=== PATIENT | female | born 1965 | race Native Hawaiian/Other Pacific Islander ===

== ENCOUNTER 2018-05-11 20:16 | Observation (INO) | payer OTHER ==
[~2018-05-11] VITALS: Ht 175.3 cm; Wt 61.9 kg
[2018-05-11 20:47] VITALS: BP 122/83; TEMP 98.7
[2018-05-11 22:13] VITALS: BP 132/80; TEMP 98
[2018-05-11 23:10] LABS: PARTIAL THROMBOPLASTIN TIME 27.6 SECONDS (24.5-33.6)
[2018-05-11 23:11] VITALS: BP 119/75; TEMP 98.1; Ht 175.3 cm; Wt 61.9 kg
[2018-05-12] VITALS: BP 119/75; TEMP 98.1
--- NOTE | 2018-05-12 00:21 | NUR ---
RECD FROM ER VIA WC, C/O PAIN BEHIND RIGHT KNEE, WITH NO REDNESS OR EDEMA NOTED. PEDAL PULSE+, POPITEAL PULSE+, BILATERAL LEGS AT KNEE MEASURE 15 INCHES AROUND. NOTED TO HAVE 22G SALINE LOCK TO RAC
[2018-05-12 04:00] VITALS: BP 117/63; TEMP 97.9
[2018-05-12 08:00] VITALS: BP 111/69; TEMP 98
[2018-05-12 09:42] LABS: PLATELET COUNT 212 K/uL (152-353)
[2018-05-12 10:01] LABS: POTASSIUM 3.8 mmol/L (3.6-5.2)
[2018-05-12 12:00] VITALS: BP 111/57; TEMP 97.9
--- NOTE | 2018-05-12 14:58 | NUR ---
PT DISCHARGED WITH EDUCATION GIVEN. PT VERBALIZED UNDERSTANDING. IV DC WITH CANNULA TIP INTACT. PT TOLERATED WELL. NAD NOTED. PT AMBULATED OUT PER REQUEST OF PT.
== END 2018-05-12 15:00 | disposition home or self-care (01) ==
LOC: ED 20:16 → MED/SURG 21:51
PROVIDERS: Family Medicine
DX: M79.661 Pain in right lower leg (principal); I83.93 Asymptomatic varicose veins of bilateral lower extremities
CPT/HCPCS: 36415; 80053; 85027; 85379; 85610; 85730; 96372; 99220; 99283; G0378; J1650

== ENCOUNTER 2019-02-07 13:31 | Emergency (ER) | payer OTHER ==
[~2019-02-07] VITALS: Ht 175.3 cm; Wt 58.1 kg
[2019-02-07 14:57] VITALS: BP 105/70; TEMP 97.7
== END 2019-02-07 15:03 | disposition home or self-care (01) ==
LOC: ED 13:31
DX: S90.31XA Contusion of right foot, initial encounter (principal); W50.0XXA Accidental hit or strike by another person, initial encounter; Y92.89 Other specified places as the place of occurrence of the external cause
CPT/HCPCS: 99282